=== PATIENT | male | born 1985 | race Caucasian/White ===

== ENCOUNTER 2016-11-20 07:58 | Emergency (ER) | payer MEDICAID, OTHER ==
[~2016-11-20] VITALS: Ht 175.3 cm; Wt 68.2 kg
[~2016-11-20 07:58] MED LIST: CITA20TA11 PO
[2016-11-20 08:07] VITALS: BP 113/66; PULSE 66; RESP 20; O2SAT 98
--- NOTE | 2016-11-20 08:16 | ED.REPORT ---
HPI-Abd Pain M Under 40 Date of Service Nov 20, 2016 ED Provider: Tucker Landrum Patient is a 31 year old male who presents to the ED complaining of nausea and vomiting onset two days ago. Associated symptoms include diarrhea, hematochezia , and abdominal pain. His pain is worse after eating. He denies hematemesis, fever, chills, chest pain, SOB, headache, or any other symptoms. He reports that a month ago he had similar symptoms with hematemesis and hematochezia. It was believed he might have a bleeding ulcer in his stomach. Nursing Notes Stated Complaint: VOMITING Chief Complaint: Male Abdominal Pain Nursing Notes Reviewed: Yes Allergies: Coded Allergies: Penicillins (Verified Allergy, Unknown, 11/20/16) Scheduled Citalopram (Citalopram) 20 Mg Tablet 20 MG PO DAILY Levofloxacin (Levaquin) 500 Mg Tablet 500 MG PO DAILY Metronidazole (Flagyl) 500 Mg Tablet 500 MG PO Q8H Pantoprazole DR (Protonix) 40 Mg Tablet 40 MG PO DAILY Scheduled PRN Ondansetron ODT (Zofran ODT) 4 Mg Tablet 4 MG PO Q4H PRN PRN For Nausea General Time Seen by MD: 08:16 Chief Complaint Vomiting moderate Hx Obtained From: Patient, Other family... 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 Neurologic: Denies: Headache Physical Exam Initial Vital Signs Vital Signs (First) Date Time Temp Pulse Resp B/P Pulse Ox O2 Delivery O2 Flow Rate FiO2 11/20/16 08:07 36.7 66 20 113/66 98 Room Air Initial VS: Reviewed, Vital signs normal Head / Eyes: Atraumatic, Normocephalic Neck: Supple, Full range of motion Skin: Warm, Dry Neurologic: Alert, Oriented, Nonfocal General/Constitutional: Awake, Alert Appears uncomfortable Thin Respiratory / Chest: Atraumatic, Breath sounds NL, Breath sounds = bilat, No respiratory distress Cardiovascular: Heart rate NL, Regular rhythm, Heart sounds NL Abdomen: Atraumatic, Soft, Non-tender, No guarding, No rebound Back: Inspection NL Dental / Gums: Positive: Dentition poor Interpretation & Diagnostics Lab Results Interpretation Result Diagram: 11/20/16 0821 11/20/16 0821 Test 11/20/16 08:21 White Blood Count 13.4th/mm3 (3.8-10.1) Red Blood Count 5.15mil/mm3 (4.40-5.80) Hemoglobin 14.9g/dL (13.8-17.2) Hematocrit 42.6% (41.0-50.0) Mean Corpuscular Volume 82.7fL (81-100) Mean Corpuscular Hemoglobin 28.9pg (27.0-35.0) Mean Corpuscular Hemoglobin Concent 35.0% (32.0-37.0) Red Cell Distribution Width 12.7% (12.3-15.4) Platelet Count 401bil/L (150-400) Neutrophils (%) (Auto) 81.5% (40-74) Lymphocytes (%) (Auto) 9.7% (14-46) Monocytes (%) (Auto) 8.5% (4-12) Eosinophils (%) (Auto) 0.1% (0-5) Basophils (%) (Auto) 0.1% (0-3) Sodium Level 139mEq/L (134-144) Potassium Level 3.3mEq/L (3.5-5.2) Chloride Level 97mEq/L (97-108) Carbon Dioxide Level 25mmol/L (18-29) Blood Urea Nitrogen 17mg/dL (6-20) Creatinine 0.72mg/dL (0.76-1.27) Estimat Glomerular Filtration Rate 134mL/min (>59) Glucose Level 121mg/dL (60-99) Calcium Level 9.7mg/dL (8.5-10.1) Magnesium Level 1.9mg/dL (1.6-2.6) Total Bilirubin 0.6mg/dL (0.0-1.2) Aspartate Amino Transf (AST/SGOT) 18U/L (0-50) Alanine Aminotransferase (ALT/SGPT) 11U/L (0-44) Alkaline Phosphatase 56U/L (25-150) Total Protein 7.9g/dL (6.4-8.4) Albumin 5.1g/dL (3.4-5.0) Lipase 13U/L (13-60) Hold Booker Top Tube Received (Received) CT Abd / Pelvis Interpretation IMPRESSION: 1. Segmental wall thickening of a few small bowel loops distally compatible with a nonspecific enteritis, likely infectious or inflammatory including possibly from inflammatory bowel disease. No evidence of bowel obstruction. 2. Appendix not discretely well-visualized but no definite pericecal inflammatory changes to suggest appendicitis. 3. Mild segmental wall thickening of the distal colon may be due to nondistention or a mild infectious or inflammatory colitis. 4. Small amount of pelvic free fluid is nonspecific but likely reactive. Dictated by: Wilfredo Quigley M.D. on 11/20/2016 at 10:48 Approved by: Wilfredo Quigley M.D. on 11/20/2016 at 10:56 Study type: Abdominal CT IV contrast, Abdom CT oral contrast Interpretation / Wet Read by: Interpret - Radiologist Re-Eval/Medical Decision Med Decision/Clinical Course Nonspecific colitis findings on CT, will treat for possible infectious colitis. Recommend close follow-up with PCP and GI for further testing. Re-Evaluation/Progress : Time of Eval: 11:12 )( Re-Eval Abdomen: Soft Re-Evaluation/Progress Note: Rechecked pt who is doing better. Discussed plan for discharge. Patient understands and agrees with plan. All questions addressed at this time. Counseled Regarding: Diagnosis, Lab results, Need for follow-up, When/why to return to ED Patient Discharge & Departure Primary Impression: Colitis Disposition: Home Discharge Condition All VS Reviewed: Yes Condition: Improved Patient Instructions: Acute Abdominal Pain (ED) Additional Instructions: Your CT shows a nonspecific colitis. This could be infectious or inflammatory such as Crohn's disease. You will be started on antibiotics to treat a possible infectious cause. You will also be started on antacid medication and nausea medication. Follow-up with a primary care doctor and a GI doctor for further evaluation of this problem. Return to the ER as needed for worsening symptoms. Referrals: NOPCP (PCP) Tala Attestation Portions of this note were transcribed by Vicky Navarro. I, Dr. Landrum personally performed the history, physical exam and medical decision-making; I reviewed and confirmed the accuracy of the information in the transcribed note. Signed by: Tala Moon, 11/20/16 Felton Landrum DO Nov 20, 2016 08:16 VICKY NAVARRO Nov 20, 2016 08:23
[2016-11-20] MEDS ORDERED: 0.9% Sodium Chloride 1,000 ML IV ONE (08:23)
[2016-11-20] MEDS ORDERED: Pantoprazole 4 mg/mL 10 mL Inj IVPUSH ONE (08:25)
[2016-11-20] MEDS ORDERED: LidocaineVisc 2%:Antacid 1:1 10 mL Syringe PO ONE (08:25)
[2016-11-20 08:33] LABS: BASOPHILS % (AUTO) 0.1 % (0-3); EOSINOPHILS % (AUTO) 0.1 % (0-5); MONOCYTES % (AUTO) 8.5 % (4-12); Mean Corpuscular Hemoglobin 28.9 pg (27.0-35.0); Mean Corpuscular Volume 82.7 fL (81-100); NEUTROPHILS % (AUTO) 81.5 % (40-74); Platelet Count 401 bil/L (150-400)
[2016-11-20] MEDS: HYDROmorphone 0.5 mg/0.5 mL iSecure Syringe IVPUSH PRN ×3 (08:34→10:42)
[2016-11-20] MEDS: Ondansetron 2 mg/mL 2 mL Inj IVPUSH PRN ×2 (08:34→09:20)
[2016-11-20] MEDS ORDERED: Iohexol 300 mg/mL 30 mL Inj PO ONE (08:40)
[2016-11-20 08:52] LABS: Magnesium 1.9 mg/dL (1.6-2.6)
[2016-11-20] MEDS ORDERED: Promethazine Inj 25 MG in Dextrose 5%-Pha MIX 50 ML IV ONE (10:05)
[2016-11-20 10:07] VITALS: BP 95/49; PULSE 61; RESP 16; O2SAT 99
--- NOTE | 2016-11-20 10:58 | DRSVH ---
PROCEDURE: CT ABDOMEN AND PELVIS WITH CONTRAST ([id number]) INDICATIONS: Abdominal pain and vomiting with leukocytosis. TECHNIQUE: After the administration of oral and intravenous contrast, 5 mm thick sections acquired from the diap hragms to the symphysis. 5 mm thick coronal and sagittal reformats were performed. For radiation do se reduction, the following was used: automated exposure control, adjustment of mA and/or kV accordi ng to patient size. COMPARISON: None. FINDINGS: Image quality: Excellent. ABDOMEN: Lung bases: There is mild dependent atelectasis. Heart size is normal. Solid organs: There is mild focal fatty infiltration in the anterior left hepatic lobe. The spleen is normal in size the gallbladder appears within normal limits without calcified gallstones. Biliary system is non-dilated. Pancreas enhances normally without peripancreatic fat stranding or fluid. N o adrenal nodules. Kidneys are normal in size and enhancement, without hydronephrosis. Peritoneum and bowel: The stomach demonstrates normal wall thickness and caliber. There are a few s egments of mild small bowel wall thickening distally including a short segment of prominent wall thic kening in the distal ileum. No associated bowel obstruction. The appendix is not discretely well-vi sualized but there are no definite pericecal inflammatory changes to suggest appendicitis. There is mild segmental wall thickening involving the descending and rectosigmoid colon which may be due to no ndistention verses a mild colitis. There is a small amount of free fluid in the pelvis which is nons pecific and may be reactive. No free air. Nodes and vessels: No retroperitoneal or mesenteric adenopathy. Aorta and inferior vena cava are no rmal in caliber. Miscellaneous: No ventral hernias. PELVIS: Genitourinary: Bladder wall thickness is normal. Miscellaneous: No inguinal hernias or adenopathy. Bones: No suspicious bony lesions. No vertebral body compression fractures. IMPRESSION: 1. Segmental wall thickening of a few small bowel loops distally compatible with a nonspecific enter itis, likely infectious or inflammatory including possibly from inflammatory bowel disease. No evide nce of bowel obstruction. 2. Appendix not discretely well-visualized but no definite pericecal inflammatory changes to suggest appendicitis. 3. Mild segmental wall thickening of the distal colon may be due to nondistention or a mild infectio us or inflammatory colitis. 4. Small amount of pelvic free fluid is nonspecific but likely reactive. Dictated by: Wilfredo Quigley M.D. on 11/20/2016 at 10:48 Approved by: Wilfredo Quigley M.D. on 11/20/2016 at 10:56
[2016-11-20] MEDS ORDERED: LEVO500T20 PO (11:14)
[2016-11-20] MEDS ORDERED: PANT40TA2 PO (11:14)
[2016-11-20] MEDS ORDERED: ONDA4TAB9 PO (11:14)
[2016-11-20] MEDS ORDERED: METR500T PO (11:15)
[2016-11-20 11:32] VITALS: BP 107/58; PULSE 59; RESP 17; O2SAT 98
== END 2016-11-20 11:33 | disposition home or self-care (01) ==
LOC: SED 07:58
DX: K52.9 Noninfective gastroenteritis and colitis, unspecified (principal); F17.200 Nicotine dependence, unspecified, uncomplicated; Z88.0 Allergy status to penicillin
CPT/HCPCS: 36415; 74177; 80053; 83690; 83735; 85025; 96361; 96374; 96375; 96376; 99285; J1170; J2405; J2550; J7030; Q9967; S0164